=== PATIENT | male | born 1960 | race Caucasian/White ===

== ENCOUNTER 2017-03-04 03:31 | Inpatient (IN) | payer OTHER ==
[~2017-03-04] VITALS: Ht 170.2 cm; Wt 102.1 kg
[~2017-03-04 03:31] MED LIST: CHLORTHALIDONE25 M1 PO; COZAAR50 M1 PO
--- NOTE | 2017-03-04 12:17 | Admission Core Measures ---
Acute Coronary Syndrome (CM) ACS Core Measures Acute Coronary Syndrome Diagnosis No Congestive Heart Failure (NEW) CHF Core Measures Congestive Heart Failure Diagnosis No Cerebrovascular Accident (NEW) CVA Core Measures CVA/TIA Diagnosis No Venous Thromboembolism VTE Core Majo (View Protocol) VTE Risk Factors Surgery No Mechanical VTE Prophylaxis d/t N/A MechProphylax Ordered No VTE Pharm Prophylaxis d/t NA PharmProphylax ordered Problem List As ranked by this Provider includes Assessment & Plan 1. Status post total hip replacement, right HOME MEDS Home Med List Chlorthalidone 25 MG TABLET 1 TAB PO DAILY BP (Reported) Losartan Potassium (Cozaar) 50 MG TABLET 1 TAB PO DAILY BP (Reported)
--- NOTE | 2017-03-04 12:18 | Patient Discharge Instructions ---
Discharge Instructions General Discharge Information You were seen/treated for: joint pain You had these procedures: total hip replacement Watch for these problems: temp>101, increased redness or drainage of wounds No bath, but you may shower: Yes Other wound care: Keep incision clean and dry. May shower, no bathing or soaking. Diet Continue normal diet: Yes Activity Activity Self Limited: Yes Activity Limited to: Weight bear as tolerated Acute Coronary Syndrome Inclusion Criteria At DC or during hospital stay patient has or had the following: Discharge Core Measures Meds if any: Prescribed or Continued at Discharge Meds if any: NOT Prescribed or Continued at Discharge Congestive Heart Failure Inclusion Criteria At DC or during hospital stay patient has or had the following: Discharge Core Measures Meds if any: Prescribed or Continued at Discharge Meds if any: NOT Prescribed or Continued at Discharge Cerebrovascular accident Inclusion Criteria At DC or during hospital stay patient has or had the following: CVA/TIA Diagnosis No Discharge Core Measures Meds if any: Prescribed or Continued at Discharge Meds if any: NOT Prescribed or Continued at Discharge Venous thromboembolism Discharge Core Measures - Per Current guidelines, there needs to be overlap - treatment for the first 5 days of Warfarin therapy. - If discharged on Warfarin prior to 5 days of - overlap therapy, the patient will need to be - assessed for post discharge needs including - *Post discharge parental anticoagulation - *Warfarin and/or parental anticoagulation education - *Follow up date to check INR post discharge Meds if any: Prescribed or Continued at Discharge Note: Overlap Therapy is Warfarin and Anticoagulant Meds if any: NOT Prescribed or Continued at Discharge
[2017-03-04] MEDS ORDERED: OMEPRAZOLE20 M3 PO (12:20)
[2017-03-04] MEDS ORDERED: MIRALAX17 G1 PO (12:20)
[2017-03-04] MEDS ORDERED: ASPIRIN EC325 M2 PO (12:20)
[2017-03-04] MEDS ORDERED: COLACE100 M1 PO (12:20)
[2017-03-04] MEDS ORDERED: DILAUDID2 M1 PO (12:20)
--- NOTE | 2017-03-04 12:23 | Surg Short-stay <48hrs Dis Sum ---
Visit Information Visit Dates Admission Date: 03/04/17 Surgical Short Stay DC Summary Admission Diagnosis: DJD/OA Final Diagnosis: Same, s/p R THR Procedure(s): R THR - see operative report Summary/Significant Findings: Pt underwent a R THR and was brought to the PACU in good condition. Over the course of his stay he was able to void spontaneously, his pain was controlled with medication and he worked with PT. He was deemed stable for discharge home with services. Condition at Discharge: good Discharge Disposition: home health services Discharge instructions provided to patient/family: Yes Post discharge follow-up plan: [address] Paredes Copies to: Denny Paredes MD
--- NOTE | 2017-03-04 13:20 | RADIOLOGY REPORT ---
EXAMINATION: XR HIP, RIGHT CLINICAL INFORMATION: Right total hip replacement. Patient in PACU. COMPARISON: None TECHNIQUE: AP and crosstable lateral views of the right hip. FINDINGS: Prosthetic components of the right total hip arthroplasty are appropriately aligned. No periprosthetic fracture. Minimal gas gas from recent surgery is present in the surrounding soft tissues. IMPRESSION: Normal postoperative appearance of the right total hip prosthesis.
[2017-03-04 13:30] VITALS: BP 118/80
--- NOTE | 2017-03-04 15:38 | Operative Report ---
Operative/Inv Procedure Report Surgery Date: 03/04/17 Name of Procedure: Right total hip replacement Pre-Operative Diagnosis: Primary right hip DJD Post-Operative Diagnosis: Same Estimated Blood Loss: 250 Surgeon/Glass Installer Technician: Reggie LEE,Denny Gray Anesthesia: block Operative/Procedure Note Note: Description of Procedure: The patient was taken to the operating room and positively identified. After induction of spinal anesthesia and administration of appropriate pre-operative antibiotics, the patient was positioned supine on the operating room table and all bony prominences were well padded. After performing a surgical timeout, the right lower extremity was prepped and draped in the usual sterile fashion. A direct anterior approach was made to the right hip. The incision was carried sharply through superficial soft tissues to the level of the fascia. Meticulous hemostasis was maintained with Bovie electocautery. The fascia over the tensor fascia jenifer muscle was opened sharply and the interval between the TFL and the sartorius was entered bluntly taking care to stay lateral to the lateral femoral cutaneous nerve. Retractors were placed around the femoral neck and the pericapsular fat was identified. The ascending branches of the lateral femoral circumflex vessels were identified and carefully coagulated. The pericapsular fat and anterior capsule were then resected. A napkin ring osteotomy was performed and the femoral head was removed without difficulty. Attention was then turned to the acetabulum. After appropriate placement of retractors, the acetabulum was exposed. Soft tissue was cleaned from the acetabular margin and notch. Overhanging osteophytes were removed and the teardrop was exposed. The acetabulum was then sequentially reamed to accept a 58 mm Rose Mary Tritanium hemispherical solid shell. This was impacted into place in the appropriate position and fitted with a 36 mm Trident X3 zero degree polyethylene insert. Attention was then turned to the femur. After performing the appropriate ligament releases, the proximal femur was exposed. It was then sequentially broached to accept a size 8 Rose Mary secure fit advanced 127 neck angle stem. This was trialed for leg length and stability. The trial component was removed and the final component was impacted into place. The trunnion was carefully cleaned and fit with a 36 mm, +5 Biolox delta ceramic femoral head. The hip was reduced and put through a full range of motion and found to be stable. The articular space was then irrigated with sterile saline. The periarticular soft tissues were infilitrated with Marcaine. The fascial layer was closed with interrupted #1 vicryl suture and the skin was re-approximated with interrupted 2 -0 vicryl. The skin was closed with a running 3-0 V-Lock suture. Steri-strips and a sterile dressing were applied. The patient was awakened and taken to the recovery room in satisfactory condition.
[2017-03-04 16:30] VITALS: BP 114/74
--- NOTE | 2017-03-04 16:43 | PN- Orthopedic ---
Subjective Subjective: PT SITTING IN CHAIR, NO COMPLAINTS, PAIN WELL-CONTROLLED. AMBULATED WITH PT. TOLERATING PO, NO NAUSEA. HAS NOT VOIDED YET BUT HAS THE URGE AND IS PLANNING TO GET UP TO VOID SHORTLY. DENIES CP,SOB, BLEVINS. Objective Vital Signs and I&Os Vital Signs Date Time Temp Pulse Resp B/P B/P Pulse O2 O2 Flow FiO2 Mean Ox Delivery Rate 03/04 1330 97.9 74 20 118/80 98 Room Air Intake & Output 03/04 1600 03/04 0800 03/04 0000 03/03 1600 03/03 0800 03/03 0000 Intake Total 325 Output Total 0 Balance 325 Intake, IV 75 Intake, Oral 250 Number 0 Bowel Movements Output, Urine 0 Patient 225 lb Weight Weight Reported by Patient Measurement Method Physical Exam: GEN-NAD RESP-CLEAR ABD-ND, NONTENDER EXT- RIGHT HIP DRESSING CLEAN AND DRY. NO SURROUNDING ERYTHEMA. DISTAL SENSATION AND MOVEMENT INTACT. 2+PT PULSE ON RIGHT LEG Assessment/Plan Assessment/Plan 56YO M SP RIGHT JORDAN POD0. STABLE CONDITION AMBULATION-WBAT WITH ASSIST PAIN MANAGEMENT DVT PROPHYLAXIS- ASA 325 ANCEF X24H AM LABS REGULAR DIET DC TO HOME LIKELY IN 24-48HOURS Core Measures Venous Thromboembolism VTE Risk Factors Surgery No Mechanical VTE Prophylaxis d/t N/A MechProphylax Ordered No VTE Pharm Prophylaxis d/t NA PharmProphylax ordered
[2017-03-04 20:30] VITALS: BP 130/88
[2017-03-05 00:42] VITALS: BP 144/98
[2017-03-05 04:55] VITALS: BP 132/76
--- NOTE | 2017-03-05 07:32 | PN- Orthopedic ---
Subjective Subjective: PT SITTING IN BED WITH 4/10 RIGHT HIP DISCOMFORT. AMBULATED THIS MORNING WHICH HE SAYS HELPS. DENIES NUMBNESS. VOIDING. TOLERATING PO. DENIES FEVERS, CP, SOB. Objective Vital Signs and I&Os Vital Signs Date Time Temp Pulse Resp B/P B/P Pulse O2 O2 Flow FiO2 Mean Ox Delivery Rate 03/05 0455 98.2 73 20 132/76 94 Room Air 03/05 0042 98.1 98 20 144/98 94 Room Air 03/04 2030 98.3 71 20 130/88 97 Room Air 03/04 1630 97.5 73 20 114/74 95 Room Air 03/04 1330 97.9 74 20 118/80 98 Room Air Intake & Output 03/05 0800 03/05 0000 03/04 1600 03/04 0800 03/04 0000 03/03 1600 Intake Total 460 1325 325 Output Total 1100 500 0 Balance -640 825 325 Intake, IV 220 525 75 Intake, Oral 240 800 250 Number 0 Bowel Movements Output, Urine 1100 500 0 Patient 225 lb Weight Weight Reported by Patient Measurement Method Physical Exam: GEN-NAD RESP-CTAB CARDIO-RRR ABD-ND, +BS, SOFT, NT EXT- RIGHT HIP DRESSING CLEAN AND DRY, NO SURROUNDING ERYTHEMA, APPROPRIATELY TENDER. DISTAL MOVEMENT AND SENSATION INTACT. NO EDEMA. 2+ R PT PULSE Assessment/Plan Assessment/Plan 56YO M SP R THR POD1 ENCOURAGE AMBULATION, WBAT WITH ASSIST DVT PROPHYLAXIS- ASA AND ALPS REG DIET DC TO HOME LATER TODAY OR POSSIBLY TOMORROW PAIN MANAGEMENT WITH PO MEDS Core Measures Venous Thromboembolism VTE Risk Factors Surgery No Mechanical VTE Prophylaxis d/t N/A MechProphylax Ordered No VTE Pharm Prophylaxis d/t NA PharmProphylax ordered
== END 2017-03-05 10:29 | disposition home health service (06) | DRG 470 ==
LOC: SDA 03:31 → ENRESERV 12:20 → ENTRNSPT 13:06 → EDTRNSPTSTS 13:21 → EDTRNSPT 13:21 → CMPTRNSPT 13:39 → 2NB 13:43 → ENPENDDIS 03-05 09:44 → ENTRNSPT 03-05 10:19 → EDTRNSPTSTS 03-05 10:26 → 2NB 03-05 10:29 → CMPTRNSPT 03-05 10:41
PROC: 0SR904A Replacement of Right Hip Joint with Ceramic on Polyethylene Synthetic Substitute, Uncemented, Open Approach (ICD-10-PCS; principal; 2017-03-04)
DX: M16.11 Unilateral primary osteoarthritis, right hip (principal); E78.5 Hyperlipidemia, unspecified; I10 Essential (primary) hypertension
CPT/HCPCS: 2NBSP; 36415; 73502-RT; 82436; 97116-GO; 97161-GP; J0131; J0690; J0735; J2405